=== PATIENT | female | born 1990 | race Caucasian/White ===

== ENCOUNTER 2021-07-17 13:45 | Emergency (ER) | payer SELFPAY ==
[~2021-07-17] VITALS: Ht 167.6 cm; Wt 61.2 kg
[2021-07-17 14:14] VITALS: BP 143/73
[2021-07-17] MEDS ORDERED: IBUPROFEN 600 MG TABLET ONE (14:42)
[2021-07-17] MEDS ORDERED: ONDANSETRON 4 MG TAB.RAPDIS ONE (14:43)
[2021-07-17] MEDS ORDERED: IBUPROFEN 600 MG TABLET PO ONE (15:00)
[2021-07-17] MEDS ORDERED: ONDANSETRON 4 MG TAB.RAPDIS SL ONE (15:00)
[2021-07-17] MEDS ORDERED: METH-647 PO (15:29)
[2021-07-17] MEDS ORDERED: IBUP-1957 PO (15:29)
--- NOTE | 2021-07-17 16:16 | NUR ---
Patient discharged to home in stable condition. Written and verbal after care instructions given. Patient verbalizes understanding of instruction.
== END 2021-07-17 16:16 | disposition home or self-care (01) ==
LOC: ER 13:45
DX: S09.8XXA Other specified injuries of head, initial encounter (principal); M54.12 Radiculopathy, cervical region; W01.0XXA Fall on same level from slipping, tripping and stumbling without subsequent striking against object, initial encounter; Y93.89 Activity, other specified; Y92.512 Supermarket, store or market as the place of occurrence of the external cause; Y99.8 Other external cause status
CPT/HCPCS: 70450; 72125; 99285; Q0162